=== PATIENT | female | born 1945 | race Caucasian/White ===

== ENCOUNTER 2021-09-09 08:15 | Day surgery (SDC) | payer OTHER ==
[~2021-09-09] VITALS: Ht 152.4 cm; Wt 74.5 kg
[~2021-09-09 08:15] MED LIST: AMLO-257 PO; ASPI-1450 PO; CALC1TAB PO; ESCI-8 PO; GABA-1216 PO; GLIP5 PO; LOSA-30 PO; MELA3TAB89 PO; METF-1211 PO; METO25XL PO; NITR0.4T52 SL; OMEP20 PO; PIOG15TA6 PO; SIMV-259 PO; SITA100 PO; SODIUM CHLORIDE 0.9% 1,000 ML ONE
[2021-09-09] MEDS ORDERED: SODIUM CHLORIDE 0.9% 1,000 ML IV ONE (08:30)
[2021-09-09] MEDS ORDERED: MULT-209 PO (08:47)
[2021-09-09] MEDS ORDERED: ESCI-8 PO (08:47)
[2021-09-09] MEDS ORDERED: DIAZEPAM 5 MG TABLET ONE (08:51)
[2021-09-09] MEDS ORDERED: DiphenhydrAMINE HCL 50 MG CAPSULE ONE (08:51)
[2021-09-09 09:41] LABS: GLUCOMETER DEV NAME(LOC) SDS.; GLUCOSE,POINT OF CARE 137 MG/DL (70-110)
[2021-09-09] MEDS ORDERED: DiphenhydrAMINE HCL 50 MG CAPSULE PO ONE (10:30)
[2021-09-09] MEDS ORDERED: DIAZEPAM 5 MG TABLET PO ONE (10:30)
[2021-09-09] MEDS ORDERED: ASPIRIN 81 MG CHEWABLE TABLET PO ONE (10:30)
[2021-09-09] MEDS ORDERED: HEPARIN SODIUM 1000 UNITS/NS 1,000 ML ONE (11:51)
[2021-09-09] MEDS ORDERED: LIDOCAINE/PF 1% 30 ML VIAL ONE (11:51)
[2021-09-09] MEDS ORDERED: IOHEXOL 300 MG/ML 100 ML VIAL ONE ×2 (11:51→11:53)
[2021-09-09] MEDS ORDERED: SODIUM BICARBONATE 50 MEQ/50 ML VIAL ONE (11:51)
[2021-09-09] MEDS ORDERED: IOHEXOL 300 MG/ML 150 ML VIAL ONE (11:51)
[2021-09-09] MEDS ORDERED: IOHEXOL 300 MG/ML 50 ML VIAL ONE (11:51)
[2021-09-09 12:01] VITALS: BP 146/68
[2021-09-09] MEDS ORDERED: FentaNYL CITRATE PF 100 MCG/2 ML VIAL ONE (12:10)
[2021-09-09] MEDS ORDERED: ONDANSETRON HCL 4 MG/2 ML VIAL ONE (12:10)
[2021-09-09] MEDS ORDERED: MIDAZOLAM HCL 2 MG/2 ML VIAL ONE (12:10)
[2021-09-09] MEDS ORDERED: METOPROLOL TARTRATE 5 MG/5 ML VIAL ONE ×3 (12:13→13:00)
[2021-09-09] MEDS ORDERED: METOPROLOL TARTRATE 5 MG/5 ML VIAL IVP ONE ×3 (12:30→13:00)
[2021-09-09] MEDS ORDERED: IOHEXOL 300 MG/ML 150 ML VIAL IARTER ONE (12:30)
[2021-09-09] MEDS ORDERED: LIDOCAINE 1% 30 ML/SOD BICARB 8.4% 4 ML SQ ONE (12:30)
[2021-09-09] MEDS ORDERED: SODIUM CHLORIDE 0.9% 500 ML IV ONE (12:30)
[2021-09-09] MEDS ORDERED: HEPARIN SODIUM 1000 UNITS/NS 1,000 ML IARTER ONE (12:30)
[2021-09-09] MEDS ORDERED: IOHEXOL 240 MG/ML 50 ML VIAL IARTER ONE (12:45)
[2021-09-09] MEDS ORDERED: HEPARIN SODIUM,PORCINE 5,000 UNITS/ML VIAL IVP ONE (12:45)
[2021-09-09 12:56] VITALS: BP 136/62
[2021-09-09] MEDS ORDERED: TICAGRELOR 90 MG TABLET PO ONE ×2 (13:00→16:30)
[2021-09-09] MEDS ORDERED: TICAGRELOR 90 MG TABLET ONE (15:12)
== END 2021-09-09 17:00 | disposition home or self-care (01) ==
LOC: CATHLAB 08:15
PROVIDERS: ATTEND Internal Medicine Interventional Cardiology
DX: R94.39 Abnormal result of other cardiovascular function study (principal); I25.10 Atherosclerotic heart disease of native coronary artery without angina pectoris; E11.9 Type 2 diabetes mellitus without complications; I10 Essential (primary) hypertension; Z88.6 Allergy status to analgesic agent; Z79.899 Other long term (current) drug therapy; Z98.890 Other specified postprocedural states
CPT/HCPCS: 82962; 93005; 93458; C1760; C1874; C1887; C9600; J1644; J3490 ×3; J7030; Q9967 ×3; 92920; 92928; J2250; J2405; J3010